=== PATIENT | male | born 1980 | race African-American/Black ===

== ENCOUNTER 2021-06-09 00:43 | Emergency (ER) | payer OTHER ==
[~2021-06-09] VITALS: Ht 190.5 cm; Wt 90.7 kg
--- NOTE | 2021-06-09 00:52 | NUR ---
PT [facility] AND [facility] C/O BREAKING INTO [employer]OUS[employer] AND POSSIBLY BEING ON PCP. PT UNWILLING TO ANSWER QUESTIONS, BREATHING EVENLY AND UNLABORED. PT ATTACHED TO MONITOR AND POX. MD AT BEDSIDE FOR EVAL. PT GIVEN CALL LIGHT WITHIN REACH
--- NOTE | 2021-06-09 01:39 | NUR ---
PT OK TO BE DISCHARGED PER DR LAW. PT DISCHARGED IN [employer] CUSTODY IN STABLE CONDITION.
[2021-06-09 01:42] VITALS: BP 124/72
--- NOTE | 2021-06-09 01:42 | NUR ---
Patient discharged in stable condition. Written and verbal after care instructions given. Patient verbalizes understanding of instruction. Pt in custody.
== END 2021-06-09 01:43 ==
LOC: EDBD 00:45 → ER 00:45
DX: F15.121 Other stimulant abuse with intoxication delirium (principal)